=== PATIENT | female | born 1985 | race Caucasian/White ===

== ENCOUNTER 2020-06-04 18:17 | Emergency (ER) | payer MEDICAID ==
[~2020-06-04] VITALS: Ht 152.4 cm; Wt 75.3 kg
[2020-06-04 19:20] LABS: BASOPHIL % 0.4 % (0-2); PLATELET COUNT 324 x10^3mcL (130-400)
[2020-06-04 19:23] LABS: RED CELL DISTRIBUTION WIDTH 14.8 % (11.5-14.5)
[2020-06-04 19:35] LABS: CALCIUM 8.5 mg/dL (8.5-10.1); CARBON DIOXIDE 28.1 mmol/L (21-32); CHLORIDE SERUM 106 mmol/L (98-107); CREATININE SERUM 0.8 mg/dL (0.6-1.0); GFR1 > 60 mL/min; GLUCOSE SERUM 82 mg/dL (74-106); POTASSIUM SERUM 4.4 mmol/L (3.5-5.1); SODIUM SERUM 142 mmol/L (136-145)
[2020-06-04 19:39] LABS: ALKALINE PHOSPHATASE 103 U/L (46-116); ALT/SGPT 49 U/L (14-59); AST/SGOT 19 U/L (15-37); BILIRUBIN TOTAL 0.2 mg/dL (0.20-1.00); TOTAL PROTEIN, SERUM 7.2 g/dL (6.4-8.2)
[2020-06-04 19:40] LABS: ALBUMIN 3.2 g/dL (3.4-5.0)
[2020-06-04 20:25] VITALS: BP 104/71
== END 2020-06-04 20:34 | disposition home or self-care (01) ==
LOC: ED 18:17
PROVIDERS: Emergency Medicine
DX: G51.0 Bell's palsy (principal); Z86.2 Personal history of diseases of the blood and blood-forming organs and certain disorders involving the immune mechanism; Z98.890 Other specified postprocedural states; Z90.49 Acquired absence of other specified parts of digestive tract; Z41.1 Encounter for cosmetic surgery; Z90.89 Acquired absence of other organs
CPT/HCPCS: J7512